=== PATIENT | male | born 1990 | race Caucasian/White ===

== ENCOUNTER 2024-06-15 17:46 | Emergency (ER) | payer BC ==
[~2024-06-15] VITALS: Ht 170.2 cm; Wt 78.0 kg
[2024-06-15 18:52] VITALS: BP_SYST 102; PULSE 70; RESP 18; TEMP 98.5; O2SAT 96
[2024-06-15] MEDS ORDERED: MYCOLOG30 TP (19:01)
[2024-06-15 19:24] VITALS: BP_SYST 102; PULSE 70; RESP 18; TEMP 98.5; O2SAT 96
== END 2024-06-15 19:23 | disposition home or self-care (01) ==
LOC: SED 17:46
DX: B35.6 Tinea cruris (principal); R21 Rash and other nonspecific skin eruption
CPT/HCPCS: 99283